=== PATIENT | male | born 1950 | race Caucasian/White ===

== ENCOUNTER 2019-10-03 11:06 | Emergency (ER) | payer MEDICARE ==
[~2019-10-03] VITALS: Ht 162.6 cm; Wt 76.0 kg
[2019-10-03 12:23] LABS: BASOPHILS % 0.4 % (0.0-2.0); EOSINOPHILS % 3.2 % (0.0-5.0); HEMATOCRIT. 37.3 % (42.0-52.0); HEMOGLOBIN. 12.6 g/dL (14.0-18.0); LYMPHOCYTES % 20.8 % (20.0-50.0); MEAN CORPUSCULAR HEMOGLOBIN 29.9 pg (28.0-32.0); MEAN CORPUSCULAR VOLUME 88.9 fL (80.0-94.0); MEAN PLATELET VOLUME 10.1 fl (7.4-10.4); MONOCYTES % 8.1 % (2.0-8.0); NEUTROPHILS % 67.5 % (40.0-76.0); PLATELET 132 x1000/uL (130-400); RED CELL DISTRIBUTION WIDTH 14.5 % (11.6-14.6)
[2019-10-03 12:25] LABS: BG BASE EXCESS 1.8 mmol/L (-2.0-2.0); BG CARBOXYHEMOGLOBIN 0.3 % (0.5-1.5); BG FRACTION INSPIRED OXYGEN 21; BG HCO3 ACT 24.5 mmol/L (22.0-26.0); BG METHEMOGLOBIN 0.1 % (0.0-1.5); BG OXYHEMOGLOBIN 92.6 % (94.0-97.0); BG PH 7.488 (7.350-7.450); BG PO2 62.8 mmHg (75.0-100.0); BG SAMPLE SITE RIGHT BRACHIAL; BG TOTAL HEMOGLOBIN 15.9 g/dL (12.0-18.0); BG VENT MODE ROOM AIR
[2019-10-03 12:27] LABS: CHLORIDE 101 mEq/L (98-107)
[2019-10-03] MEDS ORDERED: SODIUM CHLORIDE 0.9% 1,000 ML IV ONE (12:28)
[2019-10-03] MEDS ORDERED: INSULIN REGULAR (HUMULIN R) 300UNITS/3ML IV ONE (12:30)
[2019-10-03 12:35] LABS: BETA HYDROXYBUTYRATE 3.6 mMol/L (0.0-0.3)
[2019-10-03 15:41] VITALS: BP 158/81
== END 2019-10-03 16:03 | disposition short-term general hospital (02) ==
LOC: ER 11:14
DX: E11.65 Type 2 diabetes mellitus with hyperglycemia (principal); I10 Essential (primary) hypertension; Z90.49 Acquired absence of other specified parts of digestive tract; R60.0 Localized edema
CPT/HCPCS: 36415; 36600; 71045; 80053; 82010; 82375; 82805; 82962; 83690; 83880; 84484; 85025; 93005; 96361; 96374; 99285; J1815; J7030